=== PATIENT | female | born 1980 | race Caucasian/White ===

== ENCOUNTER 2016-11-06 22:18 | Emergency (ER) | payer OTHER ==
[2016-11-06 22:33] VITALS: BP 108/69
--- NOTE | 2016-11-07 00:35 | ER Document Report ---
HPI - HPI Patient complains to provider of: swollen left tonsil, pain Onset: Other - wednesday Quality of pain: Sharp Pain Level: 3 Context: 36 yo female with tonsillitis and fever returns to er due to fever recurrence, and painful swallowing. On Cefdinir and also got rocephin shot by PCP> Stret cx was negative. Was told to return if worse. Had mono twice as a child. Gets frequent infections. She wants to know if she should have a tonsillectomy and if she has an abscess. Associated Symptoms: None Exacerbated by: Denies Relieved by: Denies - ROS ROS below otherwise negative: Yes Systems Reviewed and Negative: Yes All other systems reviewed and negative - DERM Skin Color: Normal, Rosalia Past Medical History - General Information source: Patient - Social History Smoking Status: Never Smoker Frequency of alcohol use: None Drug Abuse: None Lives with: Family Family History: Reviewed & Not Pertinent Pulmonary Medical History: Reports: Hx Pneumonia - walking Renal/ Medical History: Denies: Hx Peritoneal Dialysis Musculoskeltal Medical History: Reports Hx Arthritis - knees Surgical Hx: Negative - Immunizations Hx Diphtheria, Pertussis, Tetanus Vaccination: Yes Vertical Provider Document - CONSTITUTIONAL Agree With Documented VS: Yes Exam Limitations: No Limitations General Appearance: No Apparent Distress - INFECTION CONTROL TRAVEL OUTSIDE OF THE [place] IN LAST 30 DAYS: No - HEENT HEENT: Normocephalic, Pharyngeal Erythema - mild, exudative left tonsil, no signs of peritonsillar abscess - NECK Neck: Supple, Lymphadenopathy-Left - anterior and posterior - RESPIRATORY Respiratory: Breath Sounds Normal, No Respiratory Distress O2 Sat by Pulse Oximetry: 99 - CARDIOVASCULAR Cardiovascular: Regular Rate, Regular Rhythm - GI/ABDOMEN Gastrointestinal: Abdomen Soft, Abdomen Non-Tender, No Organomegaly - MUSCULOSKELETAL/EXTREMETIES Musculoskeletal/Extremeties: ESTELITA MARQUEZ - NEURO Level of Consciousness: Awake, Alert - DERM Integumentary: Warm, Dry, No Rash Course - Re-evaluation Re-evalutation: 11/07/16 02:14 monospot is negative - Vital Signs Vital signs: Temp Pulse Resp BP Pulse Ox 99.1 F 72 18 108/69 99 11/06/16 22:30 11/06/16 22:30 11/06/16 22:30 11/06/16 22:30 11/06/16 22:30 Discharge - Discharge Clinical Impression: Exudative tonsillitis Condition: Good Disposition: HOME, SELF-CARE Instructions: Acetaminophen, Corticosteroid Medication ([facility]), ENT, Use of Over- The-Counter Ibuprofen ([facility]), Tonsillitis ([facility]) Additional Instructions: to er if worse see your doctor on wednesday for recheck continue the steroids continue the cefdinir call me in 1.5 hours for the monospot result [phone] Please complete the patient satisfaction survey if you get one, and return it.. If you do not receive a survey, then you can go to the [facility] website, [email or web address] and place your comments about your very good care. Thank you very much. It was a pleasure being your medical provider today. Forms: Return to Work Referrals: AARON DUNN PA-C [Primary Care Provider] - 11/09/16
[2016-11-07] MEDS ORDERED: ACETAMINOPHEN 325 MG TABLET PO ONE (01:47)
== END 2016-11-07 02:30 | disposition home or self-care (01) ==
LOC: ER 22:18
DX: J03.90 Acute tonsillitis, unspecified (principal)
CPT/HCPCS: 36415; 86308; 87070; 87880; 99283

== ENCOUNTER 2017-04-24 19:48 | Emergency (ER) | payer OTHER ==
[2017-04-24 20:24] LABS: AMORPHOUS SEDIMENT,URINE TRACE /HPF; APPEARANCE,URINE CLOUDY; BILIRUBIN,URINE NEGATIVE (NEGATIVE); COLOR,URINE YELLOW; GLUCOSE, URINE NEGATIVE (NEGATIVE); KETONES,URINE NEGATIVE (NEGATIVE); LEUKOCYTE ESTERASE,URINE MODERATE (NEGATIVE); NITRITE,URINE NEGATIVE (NEGATIVE); PROTEIN,URINE NEGATIVE (NEGATIVE); URINE SPECIFIC GRAVITY 1.027; UROBILINOGEN,URINE NEGATIVE mg/dL (<2.0)
[2017-04-24] MEDS ORDERED: CEPHALEXIN 500 MG CAPSULE PO ONE (21:04)
--- NOTE | 2017-04-24 21:06 | ER Document Report ---
ED General - General Chief Complaint: Urinary Problem Stated Complaint: ABDOMINAL PAIN,FREQUENT URINATION Time Seen by Provider: 04/24/17 21:02 Notes: Patient is a 36 year old female who presents with 2 days of frequency, dysuria, and mild subpubic abdominal pain. She notes that the symptoms have been gradually worsening since onset. Nothing improves or worsens her symptoms. She has a history of similar symptoms multiple times in the past with prior urinary tract infections. She denies any flank pain, states she has felt somewhat warm but has not recorded a fever at home. She has not seen her primary doctor regarding today's concerns. TRAVEL OUTSIDE OF THE [place] IN LAST 30 DAYS: No - Related Data Allergies/Adverse Reactions: erythromycin base Allergy (Intermediate, Verified 11/06/16 22:29) Hives Penicillins Allergy (Intermediate, Verified 11/06/16 22:29) Hives amoxicillin Allergy (Verified 04/24/17 19:57) Past Medical History - General Information source: Patient - Social History Smoking Status: Never Smoker Frequency of alcohol use: None Drug Abuse: None Lives with: Spouse/Significant other Family History: Reviewed & Not Pertinent - Past Medical History Cardiac Medical History: Denies: Hx Coronary Artery Disease, Hx Heart Attack, Hx Hypertension Pulmonary Medical History: Reports: Hx Pneumonia - walking Denies: Hx Asthma, Hx Bronchitis, Hx COPD Neurological Medical History: Denies: Hx Cerebrovascular Accident, Hx Seizures Renal/ Medical History: Denies: Hx Peritoneal Dialysis Musculoskeltal Medical History: Reports Hx Arthritis - knees - Immunizations Hx Diphtheria, Pertussis, Tetanus Vaccination: Yes Review of Systems - Review of Systems Notes: Constitutional: Negative for fever. HENT: Negative for sore throat. Eyes: Negative for visual changes. Cardiovascular: Negative for chest pain. Respiratory: Negative for shortness of breath. Gastrointestinal: Negative for abdominal pain, vomiting or diarrhea. Genitourinary: Positive for dysuria. Musculoskeletal: Negative for back pain. Skin: Negative for rash. Neurological: Negative for headaches, weakness or numbness. 10 point ROS negative except as marked above and in HPI. Physical Exam - Vital signs Vitals: Temp Pulse Resp BP Pulse Ox 98.5 F 70 20 131/69 H 99 04/24/17 19:51 04/24/17 19:51 04/24/17 19:51 04/24/17 19:51 04/24/17 19:51 Interpretation: Normal Notes: PHYSICAL EXAMINATION: GENERAL: Well-appearing, well-nourished and in no acute distress. HEAD: Atraumatic, normocephalic. EYES: Pupils equal round and reactive to light, extraocular movements intact, sclera anicteric, conjunctiva are normal. ENT: nares patent, oropharynx clear without exudates. Moist mucous membranes. NECK: Normal range of motion, supple without lymphadenopathy LUNGS: Breath sounds clear to auscultation bilaterally and equal. No wheezes rales or rhonchi. HEART: Regular rate and rhythm without murmurs ABDOMEN: Soft, mild suprapubic abdominal tenderness otherwise no other areas of localized pain, normoactive bowel sounds. No guarding, no rebound. No masses appreciated. EXTREMITIES: Normal range of motion, no pitting or edema. No cyanosis. NEUROLOGICAL: No focal neurological deficits. Moves all extremities spontaneously and on command. PSYCH: Normal mood, normal affect. SKIN: Warm, Dry, normal turgor, no rashes or lesions noted. Course - Re-evaluation Re-evalutation: 04/24/17 21:05 Y Patient presents with symptoms consistent with an acute cystitis. Vitals wnl. No fever, flank pain, or constitution symptoms to suggest ascending infection at this time. Patient is well in appearance, tolerating oral intake without difficulty. No focal abdominal tenderness to suggest acute appendicitis, biliary pathology, acute pancreatitis, tubo-ovarian abscesses, or pelvic inflammatory disease. Patient will be started on antibiotics at this time. A culture has been sent. At this time will discharge with return precautions and follow-up recommendations. Verbal discharge instructions given a the bedside and opportunity for questions given. Medication warnings reviewed. Patient is in agreement with this plan and has verbalized understanding of return precautions and the need for primary care follow-up in the next 24-72 hours. - Vital Signs Vital signs: Temp Pulse Resp BP Pulse Ox 98.5 F 66 16 122/85 100 04/24/17 19:51 04/24/17 21:12 04/24/17 21:12 04/24/17 21:12 04/24/17 21:12 - Laboratory Laboratory results interpreted by me: 04/24/17 19:55 Urine Blood SMALL H Ur Leukocyte Esterase MODERATE H Urine Ascorbic Acid 40 H Discharge - Discharge Clinical Impression: Cystitis Condition: Good Disposition: HOME, SELF-CARE Additional Instructions: Your urine shows findings consistent with a urinary tract infection. Please take all the antibiotics as directed even if your symptoms have improved. Please follow-up with your primary care physician as needed. Return to emergency room if you develop fever >101F, persistent vomiting, become lethargic , have severe pain in your sides, or any other symptoms that are concerning to you. Prescriptions: Cephalexin Monohydrate [Keflex 500 mg Capsule] 500 mg PO Q6H 5 Days capsule Referrals: AARON DUNN PA-C [Primary Care Provider] - Follow up as needed
[2017-04-24 21:15] VITALS: BP 122/85
== END 2017-04-24 21:22 | disposition home or self-care (01) ==
LOC: ER 19:48
DX: N30.90 Cystitis, unspecified without hematuria (principal); Z88.1 Allergy status to other antibiotic agents; Z88.0 Allergy status to penicillin
CPT/HCPCS: 36415; 81001; 81025; 87086; 87088; 99283

== ENCOUNTER 2018-02-25 13:02 | Day surgery (SDC) | payer OTHER ==
[~2018-02-25 13:02] MED LIST: LACTATED RINGERS 1000 ML IV PRN; LIDOCAINE 0.5% INJ-PF (5 MG/ML) 50 ML SDV SUBCUT PRN
[2018-02-25] MEDS ORDERED: SCOPOLAMINE HYDROBROMIDE 1.5 MG PATCH.TD72 ONE (14:23)
[2018-02-25] MEDS ORDERED: FAMOTIDINE INJ/PF 20 MG/2 ML SDV IV ONE (14:24)
[2018-02-25] MEDS ORDERED: BACITRACIN ZINC OINTMENT 15 GM ONE (17:44)
[2018-02-25] MEDS ORDERED: LIDOCAINE 2% JELLY 30 ML TUBE ONE (17:44)
[2018-02-25] MEDS ORDERED: PROPOFOL INJ 200 MG/20 ML VIAL IV ONE (17:48)
[2018-02-25] MEDS ORDERED: MIDAZOLAM 2 MG/2 ML INJ ONE (17:48)
[2018-02-25] MEDS ORDERED: FENTANYL CITRATE INJ/PF 100 MCG/2 ML AMPUL ONE ×2 (17:48→18:33)
[2018-02-25] MEDS ORDERED: DIPHENHYDRAMINE HCL 50 MG/ML VIAL IV PRN (18:10)
[2018-02-25] MEDS ORDERED: ONDANSETRON HCL INJ/PF 4 MG/2 ML SDV IV PRN (18:10)
[2018-02-25] MEDS ORDERED: MEPERIDINE HCL/PF INJ 25 MG/1 ML DISP.SYRIN IV PRN (18:10)
[2018-02-25 20:03] VITALS: BP 105/62
--- NOTE | 2018-03-01 07:54 | Discharge Summary ---
Discharge Summary (SDC) - Discharge Final Diagnosis: Bleeding internal hemorrhoids Date of Surgery: 02/25/18 Discharge Date: 02/25/18 Condition: Stable Forms: ASU Anesthesia D/C Instruction, Discharge POC-Surgical Service Treatment or Instructions: Discharge home. Diet as tolerated. Activity: Nonstrenuous. Sits baths in warm soapy water twice daily and after bowel movements. 5% lidocaine ointment to rectum 3 times daily. Follow-up with me in 3 weeks Referrals: FEROZ FITZGERALD MD [ACTIVE STAFF] - Discharge Diet: As Tolerated Respiratory Treatments at Home: Deep Breathing/Coughing, Incentive Spirometer Discharge Activity: Balance Activity w/Rest Home Care Assistance: None Needed Report the Following to Your Physician Immediately: Shortness of Breath, Nausea, Vomiting, Increase in Pain, Fever over 101 Degrees, Unusual Bleeding, Redness, Swelling, Warmth, Increased Soreness, Drainage-Yellow, Drainage-Foul Smelling, Large Clots, IV Site Infection Signs
--- NOTE | 2018-03-01 07:57 | Operative Report ---
Nonrecallable Operative Report DATE OF SURGERY: 02/25/18 PREOPERATIVE DIAGNOSIS: Bleeding internal hemorrhoids POSTOPERATIVE DIAGNOSIS: Same as above OPERATION: Rubber band ligation of internal hemorrhoids x3 SURGEON: FEROZ FITZGERALD ANESTHESIA: LMAC TISSUE REMOVED OR ALTERED: None COMPLICATIONS: None apparent ESTIMATED BLOOD LOSS: Minimal PROCEDURE: Procedure in detail: After informed consent was obtained, the patient was brought into the operating room and laid in the left lateral decubitus position. The anoscope was inserted into the rectum. Hemorrhoids were identified in the right anterior, right posterior, and left lateral columns. The hemorrhoids were then encircled with rubber bands. This was done in all 3 columns. Once this was completed, the anoscope was removed and the procedure was concluded. All sponge, instrument, and needle counts were correct x2. Condition: Stable.
== END 2018-02-25 20:00 | disposition home or self-care (01) ==
LOC: OROUT 13:02
PROVIDERS: ATTEND Surgery
DX: K64.8 Other hemorrhoids (principal); E03.9 Hypothyroidism, unspecified; M79.7 Fibromyalgia; M19.90 Unspecified osteoarthritis, unspecified site; Q45.3 Other congenital malformations of pancreas and pancreatic duct; R53.82 Chronic fatigue, unspecified; Z79.899 Other long term (current) drug therapy; Z79.84 Long term (current) use of oral hypoglycemic drugs; Z88.1 Allergy status to other antibiotic agents; Z88.0 Allergy status to penicillin; Z86.39 Personal history of other endocrine, nutritional and metabolic disease
CPT/HCPCS: 82962; 81025; 46221; J2250; J3010; J2704; S0028; 902; J3490

== ENCOUNTER → 2018-10-26 | Outpatient (CLI) | payer OTHER | LOC: WI 09:10 | PROVIDERS: ATTEND Internal Medicine | DX: Z12.39 Encounter for other screening for malignant neoplasm of breast (principal) | CPT/HCPCS: 77067 ==

== ENCOUNTER 2018-11-04 12:27 | Day surgery (SDC) | payer OTHER ==
[2018-11-04] MEDS ORDERED: SCOPOLAMINE HYDROBROMIDE 1.5 MG PATCH.TD72 ONE (13:09)
[2018-11-04] MEDS ORDERED: PROMETHAZINE HCL INJ 25 MG/1 ML VIAL IV PRN (14:17)
[2018-11-04] MEDS ORDERED: FENTANYL CITRATE INJ/PF 100 MCG/2 ML AMPUL IV PRN ×3 (14:17)
[2018-11-04 14:24] LABS: HEMOGLOBIN 11.4 g/dL (12.0-15.5); MEAN CORPUSCULAR HEMOGLOBIN 30.7 pg (27.0-33.4); MEAN CORPUSCULAR HGB CONC 34.5 g/dL (32.0-36.0); MEAN CORPUSCULAR VOLUME 89 fl (80-97); PLATELET COUNT 191 10^3/uL (150-450); RED BLOOD COUNT 3.71 10^6/uL (3.72-5.28); RED CELL DISTRIBUTION WIDTH 12.5 % (11.5-14.0)
[2018-11-04] MEDS ORDERED: LIDOCAINE 2% JELLY 30 ML TUBE ONE (15:10)
[2018-11-04] MEDS ORDERED: PROPOFOL INJ 200 MG/20 ML VIAL IV ONE (15:10)
[2018-11-04] MEDS ORDERED: MIDAZOLAM 2 MG/2 ML INJ ONE (15:10)
[2018-11-04] MEDS ORDERED: FENTANYL CITRATE INJ/PF 100 MCG/2 ML AMPUL ONE (15:10)
[2018-11-04] MEDS: FENTANYL CITRATE INJ/PF 100 MCG/2 ML AMPUL ONE ×2 (15:51→16:00)
[2018-11-04] MEDS ORDERED: HYDROCODONE/ACETAMINOPHEN 10-325 MG TABLET PO PRN (16:01)
[2018-11-04] MEDS ORDERED: HYDROCODONE/ACETAMINOPHEN 10-325 MG TABLET ONE (16:48)
[2018-11-04 20:10] VITALS: BP 107/63
--- NOTE | 2018-11-08 08:05 | Discharge Summary ---
Discharge Summary (SDC) - Discharge Final Diagnosis: Bleeding internal hemorrhoids Date of Surgery: 11/04/18 Discharge Date: 11/04/18 Condition: Stable Forms: ASU Anesthesia D/C Instruction, Discharge POC-Surgical Service Treatment or Instructions: Discharge home. Diet as tolerated. Activity: Nonstrenuous. Follow-up with me in 2 to 3 weeks. Use [id number] lidocaine containing ointments on rectum for pain control. Okay to use Tylenol and ibuprofen for pain control. Warm sits baths with soapy water twice daily and after bowel movements. Referrals: ASIM BORRERO MD [Primary Care Provider] - FEROZ BAER MD [ACTIVE STAFF] - (Call Dr Baer's office and make an appointment for 3 weeks.) Discharge Diet: As Tolerated Respiratory Treatments at Home: Deep Breathing/Coughing, Incentive Spirometer Discharge Activity: Balance Activity w/Rest, No Lifting/Push/Pulling Home Care Assistance: Provided by Family Report the Following to Your Physician Immediately: Shortness of Breath, Nausea, Vomiting, Increase in Pain, Fever over 101 Degrees, Unusual Bleeding, Swelling, IV Site Infection Signs
--- NOTE | 2018-11-08 08:08 | Operative Report ---
Nonrecallable Operative Report DATE OF SURGERY: 11/04/18 PREOPERATIVE DIAGNOSIS: Bleeding internal hemorrhoids POSTOPERATIVE DIAGNOSIS: Same as above OPERATION: Rubber band ligation of internal hemorrhoids x3 SURGEON: FEROZ FITZGERALD ANESTHESIA: LMAC TISSUE REMOVED OR ALTERED: None COMPLICATIONS: None apparent ESTIMATED BLOOD LOSS: Minimal PROCEDURE: Procedure in detail: After informed consent was obtained, the patient was brought to the operating room and laid in the left lateral decubitus position. The Hill-Thurman retractor was inserted into the rectum. Enlarged hemorrhoids were found inside the rectum in the left lateral, right posterior, and right anterior positions. Rubber bands were placed around the hemorrhoids in all 3 positions, above the dentate line. After this was completed, the Hill-Thurman retractor was removed, and the procedure was concluded. All sponge, instrument, and needle counts were correct x2. Condition: Stable.
== END 2018-11-04 17:52 | disposition home or self-care (01) ==
LOC: OROUT 12:27
PROVIDERS: ATTEND Surgery
DX: K64.8 Other hemorrhoids (principal); E06.3 Autoimmune thyroiditis; E03.9 Hypothyroidism, unspecified; M79.7 Fibromyalgia; Q45.3 Other congenital malformations of pancreas and pancreatic duct; Z79.899 Other long term (current) drug therapy; Z79.84 Long term (current) use of oral hypoglycemic drugs
CPT/HCPCS: 36415; 85027; 81025; 00902; 46221; J2250; J3010; J2704; 902

== ENCOUNTER 2018-12-16 10:18 | Day surgery (SDC) | payer OTHER ==
[~2018-12-16 10:18] MED LIST changes: +ACETAMINOPHEN 325 MG TABLET PO PRN; +DEXAMETHASONE SOD PHOSPHATE INJ 4 MG/1 ML VIAL ONE; +FENTANYL CITRATE INJ/PF 100 MCG/2 ML AMPUL ONE; +IBUPROFEN 800 MG in NORMAL SALINE 250 ML IV PRN; +MIDAZOLAM 2 MG/2 ML INJ ONE; +ONDANSETRON HCL INJ/PF 4 MG/2 ML SDV ONE; +PROPOFOL INJ 200 MG/20 ML VIAL IV ONE
[2018-12-16] MEDS ORDERED: SCOPOLAMINE HYDROBROMIDE 1.5 MG PATCH.TD72 ONE (10:56)
[2018-12-16] MEDS ORDERED: ACETAMINOPHEN 325 MG TABLET ONE (10:56)
[2018-12-16] MEDS ORDERED: SCOPOLAMINE HYDROBROMIDE 1.5 MG PATCH.TD72 TD ONE (11:15)
[2018-12-16] MEDS ORDERED: ACETAMINOPHEN 325 MG TABLET PO ONE (11:15)
[2018-12-16] MEDS ORDERED: PROPOFOL INJ 200 MG/20 ML VIAL IV ONE (11:24)
[2018-12-16] MEDS ORDERED: MIDAZOLAM 2 MG/2 ML INJ ONE (11:24)
[2018-12-16] MEDS ORDERED: MORPHINE SULFATE 10 MG/ML INJ ONE (11:24)
[2018-12-16] MEDS ORDERED: MEPERIDINE HCL/PF INJ 25 MG/1 ML DISP.SYRIN IV PRN (11:44)
[2018-12-16] MEDS ORDERED: MORPHINE SULFATE 10 MG/ML INJ IV PRN (11:44)
[2018-12-16] MEDS ORDERED: FENTANYL CITRATE INJ/PF 100 MCG/2 ML AMPUL IV PRN ×3 (11:44)
[2018-12-16] MEDS ORDERED: DIPHENHYDRAMINE HCL 50 MG/ML VIAL IV PRN (11:44)
[2018-12-16] MEDS ORDERED: FENTANYL CITRATE INJ/PF 100 MCG/2 ML AMPUL ONE (12:17)
[2018-12-16] MEDS ORDERED: LIDOCAINE 5% OINTMENT 35.44 GM PR SCH (14:00)
[2018-12-16 14:46] VITALS: BP 115/70
--- NOTE | 2018-12-19 07:48 | Discharge Summary ---
Discharge Summary (SDC) - Discharge Final Diagnosis: Internal hemorrhoids, grade 1 Date of Surgery: 12/16/18 Discharge Date: 12/16/18 Condition: Stable Forms: ASU Anesthesia D/C Instruction, Discharge POC-Surgical Service Treatment or Instructions: Diet as tolerated. Non strenuous activities. Sitz bath three times a day with warm or soapy water. Lidocaine 5 % ointment to rectum three times a day. Referrals: ASIM BORRERO MD [Primary Care Provider] - FEROZ FITZGERALD MD [ACTIVE STAFF] - 12/26/18 10:45 am Discharge Diet: As Tolerated Respiratory Treatments at Home: Deep Breathing/Coughing, Incentive Spirometer Discharge Activity: Balance Activity w/Rest, No tub bath Home Care Assistance: None Needed Report the Following to Your Physician Immediately: Shortness of Breath, Nausea, Vomiting, Increase in Pain, Fever over 101 Degrees
--- NOTE | 2018-12-19 07:52 | Operative Report ---
Nonrecallable Operative Report DATE OF SURGERY: 12/16/18 PREOPERATIVE DIAGNOSIS: Rectal bleeding POSTOPERATIVE DIAGNOSIS: Small, grade 1 internal hemorrhoids OPERATION: 1. Colonoscopy to the cecum. 2. Rubber band ligation of internal hemorrhoids x5 SURGEON: FEROZ FITZGERALD ANESTHESIA: LMAC TISSUE REMOVED OR ALTERED: None COMPLICATIONS: None apparent ESTIMATED BLOOD LOSS: Minimal PROCEDURE: Procedure in detail: After informed consent was obtained, the patient was brought into the operating room and laid in the left lateral decubitus position. The endoscope was inserted into the rectum. It was passed up the rectum, sigmoid colon, descending colon, across the transverse colon, down the ascending colon, and into the cecum. The ileocecal valve and appendiceal orifice were identified. The scope was then withdrawn, circumferentially noting the mucosa. The prep was very good. The scope was withdrawn past the ascending colon, transverse colon, down the descending colon, sigmoid colon, and into the rectum. Throughout the colon, no significant abnormality could be identified. There are no masses, lesions, polyps, ulcerations, areas of bleeding, or diverticulosis. In the rectum, a retroflexion maneuver was performed, noting areas of scarring consistent with previous hemorrhoidal banding. There were still several areas with enlarged internal hemorrhoids. The scope was then straightened, air was suctioned from the rectum, the scope was removed, and this portion of the procedure was concluded. A Hill-Thurman retractor was then inserted into the rectum. Internal hemorrhoids were ligated circumferentially. 5 separate rubber bands were used to ligate all the internal hemorrhoids. After this was completed, the procedure was concluded. The Hill-Thurman retractor was removed. All sponge, instrument, and needle counts were correct. Condition: Stable.
== END 2018-12-16 14:10 | disposition home or self-care (01) ==
LOC: OROUT 10:18
PROVIDERS: ATTEND Surgery
DX: K64.8 Other hemorrhoids (principal); K62.5 Hemorrhage of anus and rectum; E03.9 Hypothyroidism, unspecified; Q45.3 Other congenital malformations of pancreas and pancreatic duct; M79.7 Fibromyalgia; E06.3 Autoimmune thyroiditis; R53.82 Chronic fatigue, unspecified; Z79.84 Long term (current) use of oral hypoglycemic drugs; Z79.899 Other long term (current) drug therapy
CPT/HCPCS: 45378; 46221; 82962; 81025; 00811; J2250; J3010; J2270; J7050; J2704; J1741; 811; J1100; J2405; J3490

== ENCOUNTER → 2018-12-26 | Outpatient (CLI) | payer OTHER | LOC: OD 14:48 | PROVIDERS: ATTEND Nurse Practitioner Family | DX: R30.0 Dysuria (principal); R82.71 Bacteriuria | CPT/HCPCS: 87086 ==